=== PATIENT | male | born 1975 | race Caucasian/White ===

== ENCOUNTER 2025-07-16 05:33 | Day surgery (SDC) | payer OTHER ==
[~2025-07-16] VITALS: Ht 177.8 cm; Wt 130.0 kg
[~2025-07-16 05:33] MED LIST: DRIZALMA SPRINK30 MG PO; LACTATED RINGER'S 1,000 ML IV SCH; MOTRIN IB200 M1 PO; TYLENOL325 MG PO
[2025-07-16 06:03] VITALS: BP 131/84
[2025-07-16] MEDS ORDERED: SODIUM CHLORIDE 0.9% 20 ML IV ONE (06:31)
[2025-07-16] MEDS ORDERED: MIDAZOLAM HCL 2 MG/2 ML VIAL ONE (06:31)
[2025-07-16] MEDS ORDERED: Ropivacaine HCl 0.5% 30 ML VIAL ONE ×2 (06:31→10:15)
[2025-07-16] MEDS ORDERED: LIDOCAINE HCL 2% 5 ML SDV ONE (06:31)
[2025-07-16] MEDS ORDERED: DEXAMETHASONE SOD PHOS 10 MG/ML VIAL ONE (06:39)
[2025-07-16] MEDS ORDERED: OXYCODONE HCL 5 MG TAB PO SCH (07:00)
[2025-07-16] MEDS ORDERED: LIDOCAINE HCL 1% 5 ML SDV INJ ONE (07:00)
[2025-07-16] MEDS ORDERED: GABAPENTIN 600 MG TAB PO SCH (07:00)
[2025-07-16] MEDS ORDERED: PANTOPRAZOLE SODIUM 40 MG TABEC PO SCH (07:00)
[2025-07-16] MEDS ORDERED: IBLOOD GLUCOSE TEST STRIP 1 EA TEST VI PRN ×2 (07:00→08:00)
[2025-07-16] MEDS ORDERED: INTRA-ARTICULAR ANALGESIC INJECTION XX SCH (07:00)
[2025-07-16] MEDS ORDERED: KETOROLAC TROMETHAMINE 30 MG/ML VIAL IV PRN (07:00)
[2025-07-16] MEDS ORDERED: CEFAZOLIN SODIUM 3 GM in SODIUM CHLORIDE 0.9% 100 ML IV SCH ×2 (07:00→15:00)
[2025-07-16] MEDS ORDERED: ROPIVACAINE IN 0.9% SOD CHL/PF 545 ML ELS.PMP.HR IRRIGATION SCH (07:00)
[2025-07-16] MEDS ORDERED: DULOXETINE HCL 60 MG CAP PO SCH (07:00)
[2025-07-16] MEDS ORDERED: TRANEXAMIC ACID IN NACL,ISO-OS 1,000 MG/100 ML PIGGYBACK IV SCH ×2 (07:00→09:51)
[2025-07-16] MEDS ORDERED: OXYCODONE HCL 5 MG TAB PO PRN (07:00)
[2025-07-16] MEDS ORDERED: fentaNYL citrate 50 MCG/ML SDV IV PRN (08:00)
[2025-07-16] MEDS ORDERED: PROCHLORPERAZINE EDISYLATE 10 MG/2 ML VIAL IV PRN (08:00)
[2025-07-16] MEDS ORDERED: NALOXONE HCL 0.4 MG SYR IV PRN (08:00)
[2025-07-16] MEDS ORDERED: HYDROmorphone HCL 1 MG/ML SYR IV PRN (08:00)
[2025-07-16] MEDS ORDERED: CEFUROXIME250 MG PO (08:41)
[2025-07-16] MEDS ORDERED: ASPIRIN325 MG PO (08:41)
[2025-07-16] MEDS ORDERED: DICLOFENAC SODI75 MG PO (08:41)
[2025-07-16] MEDS ORDERED: SENNA LAX8.6 MG PO (08:42)
[2025-07-16] MEDS ORDERED: OXYCODONE HCL5 M1 PO (08:42)
[2025-07-16] MEDS ORDERED: TRANEXAMIC ACI650 MG PO (08:43)
[2025-07-16 09:25] VITALS: BP 111/68
[2025-07-16] MEDS ORDERED: ACETAMINOPHEN 1,000 MG/100 ML VIAL IV ONE (09:30)
--- NOTE | 2025-07-16 09:57 | NUR ---
07/16/25 0957 Rina Wren Elisabeth 0851- PT ARRIVES TO PACU, SEMI FIELD POSITION, DROWSY BUT AWAKE. O2 AT 6L PER MASK, BREATHING EVEN AND NON LABORED. LR INFUSING TO LH IV. ABD SOFT, NON DISTENDED. DRESSING TO R KNEE CDI. FOOT PUMPS AND CHOLO HOSE PLACED AND HEEL PROTECTION. ALL MONITORS IN PLACE. PT REPORTS FEET FEEL NORMAL AND IS ABLE TO MOVE BOTH. 0858- PT MOVED TO ROOM AIR, RESTING INTERMITTENTLY. DENIES PAIN OR NAUSEA. 0902- XRAY AT BEDSIDE. 0908- O2 AT 2L PER NC, SATS DROP TO 89% WHILE RESTING. PT FOLLOWS COMMANDS TO COUGH AND DEEP BREATH. BILATERAL HEARING AIDS REMAIN IN PLACE. 0915- PT DENIES PAIN OR NAUSEA. PLAN TO RETURN TO DAY SURGERY. 0925- PT TAKEN BACK TO ROOM IN DAY SURGERY, AT BEDSIDE. REPORT TO Constantine SUGGS RN AT BEDSIDE, CARE OF PT TURNED OVER AT THIS TIME.
--- NOTE | 2025-07-16 10:10 | NUR ---
0925-PT BACK TO ROOM FROM PACU ON 2L VIA DC. RECEIVED REPORT FROM JERILYN CRAFT. PT IS AWAKE. RESP EVEN AND UNLABORED. PT RATES PAIN 7/10. DENIES NAUSEA. CRYO CUFF IN PLACE AND RUNNING. ON-Q PUMP SET AT 4. WIEF AT BEDSIDE. PT DRINKING WATER AND EATING JELLO. 0930-VO PER WILL EXECUTIVE HOUSEKEEPER FOR IV TYLENOL. ORDER PLACED IN COMPUTER. 0946-PAIN MEDICATION GIVEN PER EMAR. 0948-IV TYLENOL GIVEN PER EMAR. 0956-VO PER ALISSA PERRY TO INCREASE ON-Q PUMP TO 6. 0959-TORADOL GIVEN PER EMAR. 1005-PT LAYING IN BED AWAKE LISTENING TO MUSIC. PT NO GRIMACING. RATES PAIN. 7/10. CALL LIGHT WITHIN REACH. ELEVATED ANKLE WITH SECOND TOWEL. 1016-WILL EXECUTIVE HOUSEKEEPER IN ROOM TO BOLUS ON-Q PUMP. PT STATES PAIN IS NOW A 1/10. WILL HOLD OFF ON BOLUS FOR NOW. CALL LIGHT WITHIN REACH. AT BEDSIDE.
[2025-07-16 10:32] VITALS: BP 106/65
--- NOTE | 2025-07-16 10:39 | NUR ---
PT LAYING IN BED WITH EYES CLOSED. PT AWAKES EASILY TO VERBAL STIMULI. RESP EVEN AND UNLABORED. PT DENIES PAIN AND NAUSEA. CRYO CUFF IN PLACE AND RUNNING. ON-Q PUMP SET AT 6. AT BEDSIDE. NO OTHER NEEDS AT THIS TIME. CALL LIGHT WITHIN REACH.
--- NOTE | 2025-07-16 11:03 | OR ---
[facility] [address] [place], [place] [address] Signed DATE OF OPERATION: 07/16/2025 SURGEON: Alexis Wells MD PREOPERATIVE DIAGNOSIS: Severe degenerative joint disease, right knee. POSTOPERATIVE DIAGNOSIS: Severe degenerative joint disease, right knee. PROCEDURE PERFORMED: Right total knee arthroplasty with Tristin CHILDREN'S LIBRARIAN: Rossy Casillas PA-C. Rossy was present and critical for all portions of the procedure. ANESTHESIA: Spinal. BLOOD LOSS: mL. TOURNIQUET TIME: Zero. IMPLANTS: Avalon Triathlon size 7, 9 mm polyethylene and a 35 mm patella. BRIEF HISTORY: Maciel is a 50-year-old gentleman with progressive worsening of osteoarthritis. Nonresponsive to nonoperative treatment. Risks and benefits of operative treatment were discussed with him and he elected to proceed. DESCRIPTION OF PROCEDURE: Once consent was obtained, he was taken to the operating room. After adequate anesthesia, he was placed on the operating room table. Hip bump was placed on the right. The leg was then prepped and draped in a standard sterile fashion. The knee was approached through a standard anterior midline incision, carried through the skin and subcutaneous tissue. A mid vastus arthrotomy was performed. The infrapatellar fat pad Electronically Signed By: ALEXIS WELLS MD 07/16/25 1103 PATIENT NAME: MACIEL MCKEON OPERATIVE REPORT DATE OF : 71 REPORT #: [id number] PHYSICIAN: ALEXIS WELLS MD PCP: MARIOLA ALFORD MD REPORT IS CONFIDENTIAL AND NOT TO BE RELEASED WITHOUT AUTHORIZATION [facility] [address] [place], [place] [address] Signed was excised. The MCL was elevated as a sleeve around the posteromedial corner. The anterior horns of menisci were transected. ACL was transected. PCL was found to be intact. The navigation computer arrays were then placed in the distal femur and proximal tibia and the leg was registered with the computer followed by the fine anatomic points of the knee. The varus and valgus poses were then taken and slight adjustments were made to the position of the component on the computer. Once the ligaments were balanced, the robot was brought in, the four straight cuts and two angled cuts were made with care taken to protect the patellar tendon and MCL. The bony remnants were then removed as were any remaining osteophytes. The posterior osteophytes were removed off the femur and posterior release was performed. The trials were then positioned. Knee was taken from 0 to 120 degrees of flexion with good stability throughout. The patella was cut sized and drilled for a 35 mm patella. Distal femur was then drilled. The proximal tibia was finished using the keel punch followed by the four drill holes. The prosthesis was obtained. The surgical crew changed gloves and the tibia was impacted into position until it was seated flush. Polyethylene was snapped into position and the femur was impacted. The knee was extended and loaded. The patella was then clamped until it was seated flush. The patellar tracking was then checked and found to be acceptable. The knee was then irrigated with one bottle of Surgiphor followed by normal saline. The periarticular soft tissues were injected with 100 mL of ropivacaine and Toradol mixture. The On-Q pain pump was percutaneously placed into the adductor canal from the suprapatellar pouch. The arthrotomy was then closed using a combination of #2 FiberWire and #2 Stratafix, subcutaneous tissue with 0 Stratafix and the skin with 3-0. Skin was then sealed with LiquiBand and dressed with Acticoat-7 dressing, ABD, and Rohith wrap. He tolerated the procedure well. All sponge, needle, and instrument counts were correct. Alexis Wells MD BA/MODL /[id number] Copies: ~ Electronically Signed By: ALEXIS WELLS MD 07/16/25 1103 PATIENT NAME: MACIEL MCKEON OPERATIVE REPORT DATE OF : 71 REPORT #: [id number] PHYSICIAN: ALEXIS WELLS MD PCP: MARIOLA ALFORD MD REPORT IS CONFIDENTIAL AND NOT TO BE RELEASED WITHOUT AUTHORIZATION
[2025-07-16 11:30] VITALS: BP 104/71
--- NOTE | 2025-07-16 11:38 | NUR ---
1130-PT LAYING IN BED WITH EYES CLOSED. PT OPENS EYES AND ANSWERES QUESTIONS. RSEP EVEN AND UNLABORED. DENIES PAIN AND NAUSEA. CRYO CUFF IN PLACE AND RUNNING. ON-Q PUMP SET AT 6. LUNCH ORDERED. NO OTHER NEEDS AT THIS TIME. AT BEDSIDE. CALL LIGHT WITHIN REACH.
--- NOTE | 2025-07-16 12:29 | NUR ---
1200-PHYSCICAL THERAPY IN ROOM WITH PT.
[2025-07-16 12:49] VITALS: BP 120/86
[2025-07-16] MEDS ORDERED: ACETAMINOPHEN 500 MG TAB PO SCH (15:00)
--- NOTE | 2025-07-16 15:35 | NUR ---
LE 1245-PT BACK TO ROOM FROM PACU. LE 1250-PT IN BED. RESP EVEN AND UNLABORED. DENIES PAIN AND NAUSEA. ON-Q PUMP SET AT 6. PT EATING LUNCH. NO OTHER NEEDS AT THIS TIME. AT BEDSIDE. CALL LIGHT WITHIN REACH. LE 1320-PT AMBULATES WITH WALKER TO RESTROOM. PT ABLE TO VOID 300ML. LE 1325-PT BACK TO ROOM. PT WILL GET DRESSED WITH THE HELP OF HIS .
--- NOTE | 2025-07-16 15:49 | NUR ---
LE 1345-WENT OVER DISCHARGE INSTRUCTIONS WITH PT AND HIS . ALL QUESTIONS ANSWERED. WENT OVER POSTOP MEDICATIONS. LE 1400-PT AMBULATES WITH WALKER TO WHEELCHAIR AND RIDE PROVIDED TO FRONT OF HOSPITAL WHERE WAS WAITING WITH THE CAR.
[2025-07-16] MEDS ORDERED: SENNOSIDES 1 TAB PO SCH (21:00)
[2025-07-17] MEDS ORDERED: DICLOFENAC SOD 75 MG TABEC PO SCH (08:00)
[2025-07-17] MEDS ORDERED: ASPIRIN 325 MG TAB PO SCH (08:00)
== END 2025-07-16 14:00 | disposition home or self-care (01) ==
LOC: DS 05:33
PROVIDERS: ATTEND Specialist
PROC: 3E0T3BZ Introduction of Anesthetic Agent into Peripheral Nerves and Plexi, Percutaneous Approach (ICD-10-PCS; 2025-07-16)
PROC: 3E0T3BZ Introduction of Anesthetic Agent into Peripheral Nerves and Plexi, Percutaneous Approach (ICD-10-PCS; 2025-07-16)
PROC: 0SRC0JZ Replacement of Right Knee Joint with Synthetic Substitute, Open Approach (ICD-10-PCS; principal; 2025-07-16 07:00)
DX: M17.11 Unilateral primary osteoarthritis, right knee (principal)
CPT/HCPCS: 0055T; 27447; 64447; 64473; 01402; 64454; 73560; 97110; 97116; 97162; A9270; C1713; C1776; J0131; J0688; J1100; J1885; J2003; J2250; J2405; J2704; J2795; J7121; J7999